=== PATIENT | male | born 1990 | race Caucasian/White ===

== ENCOUNTER 2022-08-29 14:14 | Emergency (ER) | payer SELFPAY ==
[~2022-08-29] VITALS: Ht 180 cm; Wt 72.5 kg
[2022-08-29 14:38] LABS: BASOPHILS # (AUTO) 0.1 10^3/uL (0.0-0.1); BASOPHILS % (AUTO) 1 % (0-10); EOSINOPHILS # (AUTO) 0.1 10^3/uL (0.0-0.3); EOSINOPHILS % (AUTO) 1 % (0-10); HEMATOCRIT 47 % (40-54); HEMOGLOBIN 16.6 g/dL (13.3-17.7); LYMPHOCYTES # (AUTO) 2.3 10^3/uL (1.0-4.0); LYMPHOCYTES % (AUTO) 31 % (12-44); MEAN CORPUSCULAR HEMOGLOBIN 34 pg (25-34); MEAN CORPUSCULAR HGB CONC 35 g/dL (32-36); MEAN CORPUSCULAR VOLUME 96 fL (80-99); MEAN PLATELET VOLUME 10.4 fL (9.0-12.2); MONOCYTES # (AUTO) 0.9 10^3/uL (0.0-1.0); MONOCYTES % (AUTO) 12 % (0-12); NEUTROPHILS # (AUTO) 4.2 10^3/uL (1.8-7.8); NEUTROPHILS % (AUTO) 55 % (42-75); PLATELET COUNT 232 10^3/uL (130-400); WHITE BLOOD COUNT 7.6 10^3/uL (4.3-11.0)
[2022-08-29 14:55] LABS: INR 0.9 (0.8-1.4); PROTHROMBIN TIME PATIENT 12.9 SEC (12.2-14.7)
[2022-08-29 14:56] LABS: ALBUMIN 4.7 GM/DL (3.2-4.5); CHLORIDE 98 MMOL/L (98-107); POTASSIUM 4.3 MMOL/L (3.6-5.0); SODIUM 137 MMOL/L (135-145)
[2022-08-29 14:57] LABS: CALCIUM 9.8 MG/DL (8.5-10.1)
[2022-08-29 14:59] LABS: GLUCOSE 95 MG/DL (70-105); TOTAL PROTEIN 7.5 GM/DL (6.4-8.2)
[2022-08-29 15:00] LABS: BILIRUBIN,TOTAL 0.8 MG/DL (0.1-1.0); CARBON DIOXIDE 28 MMOL/L (21-32)
[2022-08-29] MEDS ORDERED: ANTACID SUSP 30 ML UDC (MYLANTA) PO ONE (15:00)
[2022-08-29] MEDS ORDERED: ONDANSETRON 4 MG/2 ML (SDV) Z0FRAN IVP ONE (15:00)
[2022-08-29] MEDS ORDERED: LIDOCAINE 2% VISCOUS 15 ML UDC PO ONE (15:00)
[2022-08-29] MEDS ORDERED: PANTOPRAZOLE 40 MG (PROTONIX) VIAL IV ONE (15:00)
[2022-08-29 15:02] LABS: ALKALINE PHOSPHATASE 75 U/L (40-136); CREATININE SERUM 0.78 MG/DL (0.60-1.30); GFR ESTIMATED 122
[2022-08-29 15:03] LABS: BUN/CREATININE RATIO 9
[2022-08-29 15:05] LABS: ALANINE AMINOTRANSFERASE 10 U/L (0-55); MAGNESIUM 2.3 MG/DL (1.6-2.4)
[2022-08-29 15:06] LABS: CREATINE KINASE 64 U/L (30-200)
--- NOTE | 2022-08-29 15:11 | Diagnostic Imaging Report ---
INDICATION: Chest pain. No priors. FINDINGS: The lungs are clear. Cardiomediastinal and hilar contours are normal. No failure, effusion, or pneumothorax. No free air beneath the diaphragms. IMPRESSION: Normal frontal chest. Dictated by: Dictated on workstation # [id number]
[2022-08-29 15:12] LABS: CREATINE KINASE MB 0.7 NG/ML (<6.6)
--- NOTE | 2022-08-29 16:45 | ED General ---
General Chief Complaint: Chest Pain Stated Complaint: IRR HEART RATE Nursing Triage Note: PT PRESENTS TO ED VIA POV FROM [facility] FOR INTERMITTENT CP AND [place]. PT REPORTS HE HAS HAD THIS PAIN FOR YEARS BUT RECENTLY STARTED VOMITING WITH THE CP. PT ALSO REPORTS HE DRINKS 5-6 ENERGY DRINKS DAILY. Source of Information: Patient Exam Limitations: No Limitations History of Present Illness Date Seen by Provider: Aug 29, 2022 Time Seen by Provider: 14:22 Initial Comments This 31-year-old gentleman presents to the emergency room with complaints of left-sided chest pain and vomiting. Symptoms started yesterday. He has had intermittent episodes of this for many years. He describes a substernal burning and fullness. He describes it as a sensation of trying to push a fist through a small pipe. He has never been seen for this problem in the past. He admits to being an alcoholic and drinking 10-15 large beers per day. He also smokes and sometimes uses marijuana. He denies any recent hematemesis but states prior episodes of hematemesis. Allergies and Home Medications Allergies Coded Allergies: mushroom (Verified Allergy, Unknown, 08/29/22) Patient Home Medication List Home Medication List Reviewed: Yes Omeprazole (Omeprazole) 20 Mg Tablet.dr, 20 MG PO BID Prescribed by: SHARIF BRANNON on 08/29/22 170 Ondansetron (Ondansetron Odt) 4 Mg Tab.rapdis, 4 MG SL Q4H PRN for NAUSEA/VOMITING Prescribed by: SHARIF BRANNON on 08/29/22 170 Sucralfate (Carafate) 1 Gram Tablet, 1 GM PO QID Prescribed by: SHARIF BRANNON on 08/29/22 1701 Review of Systems Review of Systems Constitutional: no symptoms reported EENTM: no symptoms reported Respiratory: no symptoms reported Cardiovascular: see HPI Gastrointestinal: see HPI Genitourinary: no symptoms reported Musculoskeletal: no symptoms reported Skin: no symptoms reported Psychiatric/Neurological: See HPI Hematologic/Lymphatic: No Symptoms Reported Immunological/Allergic: no symptoms reported Past Vrkmhbi-Wkpyhq-Shuxrs Hx Patient Social History Tobacco Use?: Yes Tobacco type used: Cigarettes Smoking Status: Current Everyday Smoker Substance use?: Yes Substance type: Marijuana Alcohol Use?: Yes Alcohol type: Beer Alcohol Frequency: Daily (12-15 large beers) Pt feels they are or have been: No Past Medical History Surgeries: No Respiratory: No 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 oz. 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 as Tested Skin: Normal Color, Warm/Dry Progress/Results/Core Measures Suspected Sepsis SIRS Temperature: Pulse: 87 Respiratory Rate: 16 Laboratory Tests 08/29/22 14:26: White Blood Count 7.6 Blood Pressure 120 /91 Mean: 101 Laboratory Tests 08/29/22 14:26: Creatinine 0.78, INR Comment 0.9, Platelet Count 232, Total Bilirubin 0.8 Results/Orders Lab Results Laboratory Tests Test 08/29/22 14:26 Range/Units White Blood Count 7.6 4.3-11.0 10^3/uL Red Blood Count 4.90 4.30-5.52 10^6/uL Hemoglobin 16.6 13.3-17.7 g/dL Hematocrit 47 40-54 % Mean Corpuscular Volume 96 80-99 fL Mean Corpuscular Hemoglobin 34 25-34 pg Mean Corpuscular Hemoglobin Concent 35 32-36 g/dL Red Cell Distribution Width 12.1 10.0-14.5 % Platelet Count 232 130-400 10^3/uL Mean Platelet Volume 10.4 9.0-12.2 fL Immature Granulocyte % (Auto) 0 % Neutrophils (%) (Auto) 55 42-75 % Lymphocytes (%) (Auto) 31 12-44 % Monocytes (%) (Auto) 12 0-12 % Eosinophils (%) (Auto) 1 0-10 % Basophils (%) (Auto) 1 0-10 % Neutrophils # (Auto) 4.2 1.8-7.8 10^3/uL Lymphocytes # (Auto) 2.3 1.0-4.0 10^3/uL Monocytes # (Auto) 0.9 0.0-1.0 10^3/uL Eosinophils # (Auto) 0.1 0.0-0.3 10^3/uL Basophils # (Auto) 0.1 0.0-0.1 10^3/uL Immature Granulocyte # (Auto) 0.0 0.0-0.1 10^3/uL Erythrocyte Sedimentation Rate 1 0-15 MM/HR Prothrombin Time 12.9 12.2-14.7 SEC INR Comment 0.9 0.8-1.4 Activated Partial Thromboplast Time 28 24-35 SEC D-Dimer < 0.27 0.00-0.49 UG/ML Sodium Level 137 135-145 MMOL/L Potassium Level 4.3 3.6-5.0 MMOL/L Chloride Level 98 98-107 MMOL/L Carbon Dioxide Level 28 21-32 MMOL/L Anion Gap 11 5-14 MMOL/L Blood Urea Nitrogen 7 7-18 MG/DL Creatinine 0.78 0.60-1.30 MG/DL Estimat Glomerular Filtration Rate 122 BUN/Creatinine Ratio 9 Glucose Level 95 70-105 MG/DL Calcium Level 9.8 8.5-10.1 MG/DL Corrected Calcium 8.5-10.1 MG/DL Magnesium Level 2.3 1.6-2.4 MG/DL Total Bilirubin 0.8 0.1-1.0 MG/DL Aspartate Amino Transf (AST/SGOT) 17 5-34 U/L Alanine Aminotransferase (ALT/SGPT) 10 0-55 U/L Alkaline Phosphatase 75 40-136 U/L Lactate Dehydrogenase 159 125-220 U/L Total Creatine Kinase 64 30-200 U/L Creatine Kinase MB 0.7 <6.6 NG/ML Myoglobin 20.8 10.0-92.0 NG/ML Troponin I < 0.028 <0.028 NG/ML C-Reactive Protein High Sensitivity 0.08 0.00-0.50 MG/DL Total Protein 7.5 6.4-8.2 GM/DL Albumin 4.7 H 3.2-4.5 GM/DL Lipase 138 H 8-78 U/L My Orders Orders - SHARIF JONES MD Lipase (08/29/22 14:57) Ondansetron Injection (Zofran Injectio (08/29/22 15:00) Pantoprazole Injection (Protonix Injecti (08/29/22 15:00) Lidocaine 2% Viscous 15 Ml (Xylocaine Vi (08/29/22 15:00) Antacid Suspension (Mylanta Suspension (08/29/22 15:00) Medications Given in ED Current Medications Medications Dose Ordered Sig/Lawrence Route Start Time Stop Time Status Last Admin Dose Admin Al Hydrox/Mg Hydrox/Simethicone 30 ml ONCE ONCE PO 08/29/22 15:00 08/29/22 15:01 DC 08/29/22 15:59 30 ML Lidocaine HCl 15 ml ONCE ONCE PO 08/29/22 15:00 08/29/22 15:01 DC 08/29/22 15:58 15 ML Ondansetron HCl 8 mg ONCE ONCE IVP 08/29/22 15:00 08/29/22 15:01 DC 08/29/22 15:58 8 MG Pantoprazole 40 mg ONCE ONCE IV 08/29/22 15:00 08/29/22 15:01 DC 08/29/22 15:58 40 MG Vital Signs/I&O 08/29/22 08/29/22 14:24 17:15 Temp 36.3 Pulse 87 80 Resp 16 18 B/P (MAP) 120/91 (101) 99/73 Pulse Ox 98 98 Capillary Refill : Less Than 3 Seconds Blood Pressure Mean: 101 Progress Note : Progress Note Work-up was unremarkable except for minimal elevation in lipase. Symptoms primarily resolved with Zofran and GI cocktail. Patient was treated additionally with Protonix. See discharge instructions for further discussion. ECG Initial ECG Impression Date: Aug 29, 2022 Initial ECG Impression Time: 14:19 Initial ECG Rate: 94 Initial ECG Rhythm: Normal Sinus Comment Sinus rhythm with mild ST elevation diffusely likely representing a juvenile pattern. Not likely pericarditis. No abnormal intervals or axis deviation. Diagnostic Imaging Diagonstic Imaging: Xray Plain Films/CT/US/NM/MRI: chest Comments NAME: TONY [facility]RIEN [facility] REC#: [id number] PT STATUS: REG ER : 1990 PHYSICIAN: TASHA COPELAND INDUSTRIAL ENERGY ENGINEER ADMIT DATE: 08/29/22/ER Signed Date of Exam:08/29/22 CHEST 1 VIEW, AP/PA ONLY INDICATION: Chest pain. No priors. FINDINGS: The lungs are clear. Cardiomediastinal and hilar contours are normal. No failure, effusion, or pneumothorax. No free air beneath the diaphragms. IMPRESSION: Normal frontal chest. Dictated by: Dictated on workstation # [id number] Dict: 08/29/22 1504 Trans: 08/29/22 1653 [id number] Interpreted by: DIANA THOMAS Electronically signed by: DIANA THOMAS 08/29/22 1653 Departure Impression Primary Impression: Atypical chest pain Additional Impressions: Epigastric pain Alcohol dependence Qualified Codes: F10.29 - Alcohol dependence with unspecified alcohol- induced disorder Nausea & vomiting Qualified Codes: R11.2 - Nausea with vomiting, unspecified Pancreatitis Qualified Codes: K85.20 - Alcohol induced acute pancreatitis without necrosis or infection Disposition: 01 HOME, SELF-CARE Condition: Improved (ERASED) Departure-Patient Inst. Decision time for Depature: 16:56 Referrals: [facility] (PCP/Family) Primary Care Physician Patient Instructions: ALCOHOL AND SUBSTANCE ABUSE, Abdominal Pain, Adult ED, Esophagitis, Gastritis ED, OUTPT SUBSTANCE ABUSE RESOURCE Add. Discharge Instructions: Gradually taper down on your alcohol consumption. Do not stop alcohol abruptly as this may cause potentially life-threatening withdrawal symptoms including s eizures and delirium tremens. Take omeprazole and Carafate as prescribed to help protect your stomach. Use Zofran as prescribed for nausea and vomiting. Follow-up with a primary care provider soon as possible for further care and monitoring of your health conditions. Seek treatment for your alcohol dependence as rapidly as possible. See the attached resources. In addition there are some community support groups that may be beneficial such as: [facility] at [facility] in [facility], [facility] in [facility], Return to the emergency room if you have worsening symptoms despite following these instructions. All discharge instructions reviewed with patient and/or family. Voiced understanding. Scripts Ondansetron (Ondansetron Odt) 4 Mg Tab.rapdis 4 MG SL Q4H PRN for NAUSEA/VOMITING, #10 TAB Prov: SHARIF JONES MD 08/29/22 Sucralfate (Carafate) 1 Gram Tablet 1 GM PO QID, #120 TAB Dissolve or crush and mix into 5-10 mL water to make a slurry. Take 30 minutes before meals and before bed. Prov: SHARIF JONES MD 08/29/22 Omeprazole (Omeprazole) 20 Mg Tablet. 20 MG PO BID, #60 TAB Prov: SHARIF JONES MD 08/29/22 Copy Copies To 1: [facility]/SHARIF LEWIS MD Aug 29, 2022 16:45
[2022-08-29] MEDS ORDERED: OMEP20TA56 PO (17:01)
[2022-08-29] MEDS ORDERED: ONDA4TAB11 SL (17:01)
[2022-08-29] MEDS ORDERED: SUCR1TAB36 PO (17:01)
[2022-08-29 17:15] VITALS: BP 99/73
== END 2022-08-29 17:15 | disposition home or self-care (01) ==
LOC: EDUNIT# 14:14 → ER 14:16
DX: K85.90 Acute pancreatitis without necrosis or infection, unspecified (principal); F10.20 Alcohol dependence, uncomplicated; R07.89 Other chest pain; F17.210 Nicotine dependence, cigarettes, uncomplicated; Z28.310 Unvaccinated for COVID-19
CPT/HCPCS: 36415; 71045; 80053; 82550; 82553; 83615; 83690; 83735; 83874; 84484; 85025; 85379; 85610; 85652; 85730; 86141; 93005; 93041

== ENCOUNTER 2023-03-31 17:01 | Emergency (ER) | payer SELFPAY ==
[~2023-03-31] VITALS: Ht 180 cm; Wt 74.0 kg
[~2023-03-31 17:01] MED LIST: OMEP20TA56 PO; ONDA4TAB11 SL; SUCR1TAB36 PO
[2023-03-31 17:04] VITALS: BP 129/94
[2023-03-31] MEDS ORDERED: ASPIRIN 81 MG CHEW (CHILDREN'S ASA) PO ONE (17:15)
[2023-03-31 17:20] LABS: BASOPHILS # (AUTO) 0.1 10^3/uL (0.0-0.1); BASOPHILS % (AUTO) 1 % (0-10); EOSINOPHILS # (AUTO) 0.1 10^3/uL (0.0-0.3); EOSINOPHILS % (AUTO) 2 % (0-10); HEMATOCRIT 44 % (40-54); HEMOGLOBIN 15.5 g/dL (13.3-17.7); LYMPHOCYTES % (AUTO) 39 % (12-44); MEAN CORPUSCULAR HEMOGLOBIN 33 pg (25-34); MEAN CORPUSCULAR HGB CONC 35 g/dL (32-36); MEAN CORPUSCULAR VOLUME 94 fL (80-99); MONOCYTES # (AUTO) 0.9 10^3/uL (0.0-1.0); MONOCYTES % (AUTO) 12 % (0-12); NEUTROPHILS # (AUTO) 3.7 10^3/uL (1.8-7.8); NEUTROPHILS % (AUTO) 47 % (42-75); PLATELET COUNT 234 10^3/uL (130-400); WHITE BLOOD COUNT 7.8 10^3/uL (4.3-11.0)
--- NOTE | 2023-03-31 17:31 | ED Cardiac General ---
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 STATES DRINKING ETOH MAKES IT WORSE AND HAD HAD THREE BEERS TODAY. HX OF HEART MURMUR. SMELLS OF ETOH. (AMARJIT VERGARA) History of Present Illness Date Seen by Provider: Mar 31, 2023 Time Seen by Provider: 17:04 Initial Comments 32 year old male presents with chest pain for the last 2 hours. He was sleeping and pain caused him to wake up, he drank 2 beers and came to ED. He has not taken Aspirin. Reports history of intermittent chest pain "my whole life." He was evaluated in this ED in 2021 for chest pain. He does not have a PCP or see cardiology. He works at [employer]. Reports history of anxiety, depression, and schizophrenia. Does not take any medications or see mental health. He reports chronic history of insomnia. Longstanding history of alcohol abuse. He reports drinking up to 35 beers on most days, he tried to cut back approximately 2 weeks ago and drink 15 beers yesterday. He denies tobacco use but reports marijuana use, last time was approximately 2 weeks ago. VS stable, other than HR 90s-110. Timing/Duration: 1-3 hours Severity: mild Location: substernal (palpable chest pain) Prior CP/Workup: non-cardiac NTG SL WELFARE DIRECTOR: No ASA po WELFARE DIRECTOR: No Associated Systoms: Chest Pain, Cough (a few weeks ago); No Diaphoresis, No Fever/Chills, No Headaches, No Loss of Appetite, No Malaise, No Nausea/Vomiting, No Rash, No Seizure, No Shortness of Air, No Syncope, No Weakness (AMARJIT VERGARA) Allergies and Home Medications Allergies Coded Allergies: mushroom (Verified Allergy, Unknown, 08/29/22) Patient Home Medication List Home Medication List Reviewed: Yes (AMARJIT VERGARA) Discontinued Medications Omeprazole (Omeprazole) 20 Mg Tablet., 20 MG PO BID Discontinued Reason: No Longer Taking Prescribed by: SHARIF BRANNON on 08/29/22 1701 Last Action: Discontinued Ondansetron (Ondansetron Odt) 4 Mg Tab.rapdis, 4 MG SL Q4H PRN for NAUSEA/VOMITING Discontinued Reason: No Longer Taking Prescribed by: SHARIF BRANNON on 08/29/221700 Last Action: Discontinued Sucralfate (Carafate) 1 Gram Tablet, 1 GM PO QID Discontinued Reason: No Longer Taking Prescribed by: SHARIF BRANNON on 08/29/221700 Last Action: Discontinued Review of Systems Review of Systems Constitutional: no symptoms reported, see HPI Cardiovascular: See HPI, Chest Pain Psychiatric/Neurological: See HPI, Anxiety, Depressed, Emotional Problems (AMARJIT VERGARA) All Other Systems Reviewed Negative Unless Noted: Yes (AMARJIT VERGARA) Past Dnmuvle-Kylhpq-Xjyryk Hx Patient Social History Tobacco Use?: Yes Smoking Status: Current Everyday Smoker Substance type: Marijuana Alcohol Use?: Yes Alcohol Frequency: Daily (AMARJIT VERGARA) Past Medical History Surgeries: No Respiratory: No 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 oz. kg; 22.00 BMI Method: General Appearance: WD/WN, Anxious HEENT: TMs Normal, Normal ENT Inspection, Pharynx Normal Neck: Full Range of Motion, Normal Inspection, Non Tender, Supple Respiratory: Lungs Clear, Normal Breath Sounds, Other (left chest wall tender to light or deep palpation) Cardiovascular: Regular Rate, Rhythm, No Edema, No Murmur, Normal Peripheral Pulses, Tachycardia Gastrointestinal: Normal Bowel Sounds, Non Tender, Soft Extremity: Normal Capillary Refill, Normal Inspection, Normal Range of Motion, Non Tender, No Calf Tenderness, No Pedal Edema Neurologic/Psychiatric: Alert, Oriented x3, No Motor/Sensory Deficits, Normal Mood/Affect Skin: Normal Color, Warm/Dry (AMARJIT VERGARA) Progress/Results/Core Measures Results/Orders Lab Results Laboratory Tests Test 03/31/23 17:10 03/31/23 17:27 Range/Units White Blood Count 7.8 4.3-11.0 10^3/uL Red Blood Count 4.67 4.30-5.52 10^6/uL Hemoglobin 15.5 13.3-17.7 g/dL Hematocrit 44 40-54 % Mean Corpuscular Volume 94 80-99 fL Mean Corpuscular Hemoglobin 33 25-34 pg Mean Corpuscular Hemoglobin Concent 35 32-36 g/dL Red Cell Distribution Width 12.6 10.0-14.5 % Platelet Count 234 130-400 10^3/uL Mean Platelet Volume 10.0 9.0-12.2 fL Immature Granulocyte % (Auto) 0 % Neutrophils (%) (Auto) 47 42-75 % Lymphocytes (%) (Auto) 39 12-44 % Monocytes (%) (Auto) 12 0-12 % Eosinophils (%) (Auto) 2 0-10 % Basophils (%) (Auto) 1 0-10 % Neutrophils # (Auto) 3.7 1.8-7.8 10^3/uL Lymphocytes # (Auto) 3.0 1.0-4.0 10^3/uL Monocytes # (Auto) 0.9 0.0-1.0 10^3/uL Eosinophils # (Auto) 0.1 0.0-0.3 10^3/uL Basophils # (Auto) 0.1 0.0-0.1 10^3/uL Immature Granulocyte # (Auto) 0.0 0.0-0.1 10^3/uL Prothrombin Time 12.0 L 12.2-14.7 SEC INR Comment 0.8 0.8-1.4 Activated Partial Thromboplast Time 26 24-35 SEC Sodium Level 141 135-145 MMOL/L Potassium Level 4.1 3.6-5.0 MMOL/L Chloride Level 106 98-107 MMOL/L Carbon Dioxide Level 21 21-32 MMOL/L Anion Gap 14 5-14 MMOL/L Blood Urea Nitrogen 6 L 7-18 MG/DL Creatinine 0.90 0.60-1.30 MG/DL Estimat Glomerular Filtration Rate 116 BUN/Creatinine Ratio 7 Glucose Level 97 70-105 MG/DL Calcium Level 8.8 8.5-10.1 MG/DL Corrected Calcium 8.5 8.5-10.1 MG/DL Magnesium Level 2.2 1.6-2.4 MG/DL Total Bilirubin 0.2 0.1-1.0 MG/DL Aspartate Amino Transf (AST/SGOT) 35 H 5-34 U/L Alanine Aminotransferase (ALT/SGPT) 20 0-55 U/L Alkaline Phosphatase 64 40-136 U/L Myoglobin 21.1 10.0-92.0 NG/ML Troponin I < 0.028 <0.028 NG/ML Total Protein 7.3 6.4-8.2 GM/DL Albumin 4.4 3.2-4.5 GM/DL Serum Alcohol 293 H <10 MG/DL Urine Color YELLOW Urine Clarity CLEAR Urine pH 6.0 5-9 Urine Specific Moore 1.010 L 1.016-1.022 Urine Protein NEGATIVE NEGATIVE Urine Glucose (UA) NEGATIVE NEGATIVE Urine Ketones NEGATIVE NEGATIVE Urine Nitrite NEGATIVE NEGATIVE Urine Bilirubin NEGATIVE NEGATIVE Urine Urobilinogen 0.2 < = 1.0 MG/DL Urine Leukocyte Esterase NEGATIVE NEGATIVE Urine RBC (Auto) NEGATIVE NEGATIVE Urine RBC NONE /HPF Urine WBC NONE /HPF Urine Squamous Epithelial Cells RARE /HPF Urine Crystals NONE /LPF Urine Bacteria NEGATIVE /HPF Urine Casts NONE /LPF Urine Mucus NEGATIVE /LPF Urine Culture Indicated NO Urine Opiates Screen NEGATIVE NEGATIVE Urine Oxycodone Screen NEGATIVE NEGATIVE Urine Methadone Screen NEGATIVE NEGATIVE Urine Propoxyphene Screen NEGATIVE NEGATIVE Urine Barbiturates Screen NEGATIVE NEGATIVE Ur Tricyclic Antidepressants Screen NEGATIVE NEGATIVE Urine Phencyclidine Screen NEGATIVE NEGATIVE Urine Amphetamines Screen NEGATIVE NEGATIVE Urine Methamphetamines Screen NEGATIVE NEGATIVE Urine Benzodiazepines Screen NEGATIVE NEGATIVE Urine Cocaine Screen NEGATIVE NEGATIVE Urine Cannabinoids Screen NEGATIVE NEGATIVE (SHARIF JONES MD) My Orders Orders - SHARIF JONES MD Ekg Tracing (03/31/23 17:04) (SHARIF JONES MD) Vital Signs/I&O 03/31/23 17:04 Temp 36.3 Pulse 117 Resp 16 B/P (MAP) 129/94 (106) Pulse Ox 97 O2 Delivery Room Air (SHARIF JONES MD) Blood Pressure Mean: 106 Progress Progress Note : Time: 17:04 Progress Note Patient assessed, reviewed past medical history. Obtained EKG, chest x-ray, labs and aspirin 324 mg given. EKG results reviewed with the patient and his brother. Stressed that we will need to do further work-up to determine the cause of his pain. 1742 patient ambulated out of room to nurse's station and demanded to leave. He had removed IV and 4x[address] with tape. Offered to review labs and provide discharge. He refused and would not sign AMA papers. Risk and benefits discussed, he walked out door. Labs are not complete, Troponin not known at this time. Blood alcohol 293. 1830 labs completed, troponin normal. (AMARJIT VERGARA) Initial ECG Impression Date: Mar 31, 2023 Initial ECG Impression Time: 17:11 Initial ECG Rate: 116 Initial ECG Rhythm: S.Tach Initial ECG Intervals: ID Initial ECG Intervals ID 152, QRSD 86, QT294, QTc 363. Cincinnatus P73, RR 77, T43. Initial ECG Impression: Normal Initial ECG Comparisson: Unchanged (AMARJIT VERGARA) Departure Impression Primary Impression: Chest wall pain Disposition: HOME, SELF-CARE Condition: Against Medical Advice Departure-Patient Inst. Decision time for Depature: 17:43 (AMARJIT VERGARA) Referrals: [facility] ([place]P/Family) Primary Care Physician ATTENDING PHYSICIAN NOTE: I was physically present as attending physician in the emergency department during the care of this patient, but I was not directly involved in the decision making or delivery of care for this patient. (SHARIF JONES MD) AMARJIT VERGARA Mar 31, 2023 17:31 SHARIF JONES MD April 01, 2023 09:37
[2023-03-31 17:32] LABS: INR 0.8 (0.8-1.4)
[2023-03-31 17:33] LABS: ALBUMIN 4.4 GM/DL (3.2-4.5); POTASSIUM 4.1 MMOL/L (3.6-5.0)
[2023-03-31 17:34] LABS: CALCIUM 8.8 MG/DL (8.5-10.1)
[2023-03-31 17:35] LABS: TOTAL PROTEIN 7.3 GM/DL (6.4-8.2)
[2023-03-31 17:37] LABS: BILIRUBIN,TOTAL 0.2 MG/DL (0.1-1.0)
[2023-03-31 17:37] LABS: BILIRUBIN,URINE NEGATIVE (NEGATIVE); CLARITY,URINE CLEAR; COLOR,URINE YELLOW; GLUCOSE, URINE (UA) NEGATIVE (NEGATIVE); KETONES,URINE NEGATIVE (NEGATIVE); LEUKOCYTE ESTERASE ,URINE NEGATIVE (NEGATIVE); NITRITE,URINE NEGATIVE (NEGATIVE); PROTEIN,URINE NEGATIVE (NEGATIVE)
[2023-03-31 17:39] LABS: CREATININE SERUM 0.9 MG/DL (0.60-1.30)
[2023-03-31 17:42] LABS: MAGNESIUM 2.2 MG/DL (1.6-2.4)
[2023-03-31 17:43] LABS: BACTERIA,URINE NEGATIVE /HPF; SQUAMOUS EPITHELIAL CELL,UR RARE /HPF
[2023-03-31 17:49] LABS: AMPHETAMINE SCREEN, URINE NEGATIVE (NEGATIVE); BARBITURATE SCREEN URINE NEGATIVE (NEGATIVE); BENZODIAZEPINES SCREEN URINE NEGATIVE (NEGATIVE); CANNABINOID SCREEN, URINE NEGATIVE (NEGATIVE); COCAINE SCREEN URINE NEGATIVE (NEGATIVE); METHADONE STAT NEGATIVE (NEGATIVE); OPIATE SCREEN URINE NEGATIVE (NEGATIVE); OXYCODONE STAT NEGATIVE (NEGATIVE); PROPOXYPHENE STAT NEGATIVE (NEGATIVE); TRICYCLIC ANTIDEPRESSANTS SCRE NEGATIVE (NEGATIVE)
--- NOTE | 2023-03-31 17:50 | Diagnostic Imaging Report ---
CHEST 1 VIEW, AP/PA ONLY INDICATION: Chest pain. COMPARISON: Chest radiograph 08/29/2022. FINDINGS: Lungs: Normal lung volume. No focal consolidation. Stable pulmonary vasculature. Pleura: No pleural effusion or pneumothorax. Heart and Mediastinum: Cardiomediastinal silhouette and great vessels of the thorax are stable. Osseous Structures and Soft Tissues: No acute osseous abnormality. Normal soft tissues. IMPRESSION: No acute cardiopulmonary process. Dictated by: Dictated on workstation # [id number]
== END 2023-03-31 17:43 | disposition left against medical advice (07) ==
LOC: EDUNIT# 17:01 → ER 17:03
DX: R07.89 Other chest pain (principal); F17.200 Nicotine dependence, unspecified, uncomplicated; Z28.310 Unvaccinated for COVID-19
CPT/HCPCS: 71045; 80053; 80306; 81000; 83735; 83874; 84484; 85025; 85610; 85730; 93005; 93041; 99284; G0480; 36415; 80320

== ENCOUNTER 2023-07-14 11:00 | Emergency (ER) | payer SELFPAY ==
[~2023-07-14] VITALS: Ht 168 cm; Wt 77.0 kg
[~2023-07-14 11:00] MED LIST changes: +DOXY-227 PO
[2023-07-14] MEDS ORDERED: NS IV 1000 ML 1,000 ML IV STA (11:26)
--- NOTE | 2023-07-14 11:32 | ED Chest Pain ---
General Chief Complaint: Psych/Social Disorder Stated Complaint: SOA/STRESS Nursing Triage Note: WAS ABLE TO GET PT TO COME INTO THE ER. STATES HE HAS ANXIETY AND IT HAS BEEN GOING ON A LIFETIME. COMPLIANS OF SOA AND CHEST PAIN. STATES HE QUIT DRINKING ETOH 1 WEEK AGO BUT STARTED DRINKING TODAY. HAS DRANK A TALL BOY AND A HALF. Source: patient Exam Limitations: intoxication History of Present Illness Date Seen by Provider: Jul 14, 2023 Time Seen by Provider: 11:28 Initial Comments Patient is a 32-year-old male who presents to ED with substernal left-sided chest pain. He states he has a history of chest pain and shortness of breath. This pain increased today with shortness of breath. Patient drove himself to the ED. States he stopped drinking alcohol about a week ago. He reports drinking a tall boy and a half this morning. Patient appears intoxicated. Patient did drive himself here. Patient did check himself in and decided that he wanted to leave. Nursing staff went out to his vehicle to talk to patient about coming in. Since patient was intoxicated PD was contacted and met patient out in the parking lot. Patient agreed to be seen at this time. Patient does appear intoxicated. Complaining of substernal left-sided chest pain. History of a heart murmur. Recently diagnosed with pneumonia June 20. Patient states he is on antibiotic. Currently on meloxicam. Denies of any vomiting. States he has been having the night sweats over the past week started drinking again today. Increase stress and anxiety. Believes this is secondary to anxiety. He has had some mild diarrhea. He reports a chronic cough but every day smoker. Reports chest pain 10 out of 10. Denies headache, dizziness, visual changes, abdominal pain, unilateral muscle weakness or sensory changes. Allergies and Home Medications Allergies Coded Allergies: mushroom (Verified Allergy, Unknown, 08/29/22) Patient Home Medication List Home Medication List Reviewed: Yes Doxycycline Hyclate (Doxycycline Hyclate) 100 Mg Tablet., 100 MG PO BID Prescribed by: Yamila Saunders on 06/20/23 6410 Review of Systems Review of Systems Constitutional: chills; No dizziness, No fever; malaise, weakness EENTM: No Double Vision, No Eye Pain Respiratory: Cough, Shortness of Air Cardiovascular: Chest Pain Gastrointestinal: Denies Abdominal Pain; Diarrhea, Nausea; Denies Vomiting Genitourinary: Denies Burning, Denies Discharge, Denies Drainage, Denies Fr equency Musculoskeletal: No back pain, No joint pain Skin: No change in color, No change in hair/nails Psychiatric/Neurological: Anxiety All Other Systems Reviewed Negative Unless Noted: Yes Past Joyvxri-Zjlhyg-Zxkujz Hx Patient Social History Tobacco Use?: Yes Tobacco type used: Cigarettes Smoking Status: Current Everyday Smoker Alcohol Use?: Yes Alcohol Frequency: Daily Past Medical History Surgery/Hospitalization HX: HEART MURMUR Surgeries: No Respiratory: No Cardiac: Yes ("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 oz. 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, application 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-XII Norm as Tested Skin: Normal Color, Warm/Dry Progress/Results/Core Measures Results/Orders Lab Results Laboratory Tests Test 07/14/23 11:30 07/14/23 12:24 Range/Units White Blood Count 12.0 H 4.3-11.0 10^3/uL Red Blood Count 4.90 4.30-5.52 10^6/uL Hemoglobin 16.1 13.3-17.7 g/dL Hematocrit 47 40-54 % Mean Corpuscular Volume 96 80-99 fL Mean Corpuscular Hemoglobin 33 25-34 pg Mean Corpuscular Hemoglobin Concent 34 32-36 g/dL Red Cell Distribution Width 12.5 10.0-14.5 % Platelet Count 321 130-400 10^3/uL Mean Platelet Volume 9.9 9.0-12.2 fL Immature Granulocyte % (Auto) 0 % Neutrophils (%) (Auto) 62 42-75 % Lymphocytes (%) (Auto) 25 12-44 % Monocytes (%) (Auto) 11 0-12 % Eosinophils (%) (Auto) 1 0-10 % Basophils (%) (Auto) 1 0-10 % Neutrophils # (Auto) 7.5 1.8-7.8 10^3/uL Lymphocytes # (Auto) 3.0 1.0-4.0 10^3/uL Monocytes # (Auto) 1.3 H 0.0-1.0 10^3/uL Eosinophils # (Auto) 0.1 0.0-0.3 10^3/uL Basophils # (Auto) 0.1 0.0-0.1 10^3/uL Immature Granulocyte # (Auto) 0.1 0.0-0.1 10^3/uL Prothrombin Time 12.2 12.2-14.7 SEC INR Comment 0.9 0.8-1.4 Activated Partial Thromboplast Time 26 24-35 SEC Sodium Level 142 135-145 MMOL/L Potassium Level 3.4 L 3.6-5.0 MMOL/L Chloride Level 109 H 98-107 MMOL/L Carbon Dioxide Level 20 L 21-32 MMOL/L Anion Gap 13 5-14 MMOL/L Blood Urea Nitrogen 7 7-18 MG/DL Creatinine 0.79 0.60-1.30 MG/DL Estimat Glomerular Filtration Rate 121 BUN/Creatinine Ratio 9 Glucose Level 56 *L 70-105 MG/DL Calcium Level 9.4 8.5-10.1 MG/DL Corrected Calcium 9.0 8.5-10.1 MG/DL Magnesium Level 2.6 H 1.6-2.4 MG/DL Total Bilirubin 0.4 0.1-1.0 MG/DL Aspartate Amino Transf (AST/SGOT) 31 5-34 U/L Alanine Aminotransferase (ALT/SGPT) 40 0-55 U/L Alkaline Phosphatase 81 40-136 U/L Troponin I < 0.028 <0.028 NG/ML Total Protein 7.8 6.4-8.2 GM/DL Albumin 4.5 3.2-4.5 GM/DL Lipase 92 H 8-78 U/L Serum Alcohol 255 H <10 MG/DL Glucometer 111 H 70-110 MG/DL My Orders Orders - BRIANA GORDON Tiffanie PA Cbc With Automated Diff (07/14/23 11:) Magnesium (07/14/23:) Chest 1 View, Ap/Pa Only (07/14/23) Ekg Tracing (07/14/23) Comprehensive Metabolic Panel (07/14/23) Protime With Inr (07/14/23) Partial Thromboplastin Time (07/14/23) Monitor-Rhythm Ecg Trace Only (07/14/23:) Ed Iv/Invasive Line Start (07/14/23:) Lipase (07/14/23:) Troponin I [place] (07/14/23:) Ns Iv 1000 Ml (Sodium Chloride 0.9%) (07/14/23:) Alcohol (07/14/23:) Vital Signs/I&O 07/14/23 07/14/23 11:20 12:43 Temp 36.3 Pulse 136 104 Resp 16 20 B/P (MAP) 120/83 (95) 115/81 Pulse Ox 97 O2 Delivery Room Air Nasal Cannula Blood Pressure Mean: 95 Comment Sinus tachycardia, 110 bpm, QRS duration 84 MS, QTc 392 MS Departure Communication (PCP) Reviewed previous ER visits, H&P, lab testing. Differential diagnosis, pneumonia, pericarditis, alcohol abuse, pancreatitis, gastritis. Patient is a 32-year-old male who presents to the ED for shortness of breath, chest pain. States he stopped drinking alcohol about a week ago. Started drinking today. Intermittent left-sided and substernal chest pain worse this morning with associate shortness of breath. Patient was seen here June 20. Diagnosed pneumonia. Patient Was discharged with doxycycline which she has finished antibiotics. Patient anxious and stressed. Patient initially checked in and was wanting to leave. Nursing staff went out to redirect patient to the ED as patient appeared intoxicated and concern for his safety. Patient agreed to be seen. Patient does appear intoxicated. Patient was tachycardic. He was not hypoxic. Patient had a CT angio of his chest on June 20 which was negative for PE positive for pneumonia. EKG, generalized lab work, cardiac work-up with added alcohol. Patient Was started on liter fluid as patient did smell of alcohol. Denies any drug use. EKG showed sinus tachycardia without evidence of ST elevation or depression. Hematology shows slight elevated white blood count of 12. Chemistry potassium 3.4. Normal kidney function, liver function. Slight elevated lipase at 92. Magnesium 2.6. Normal troponin. Blood sugar returned at 56. Patient states he has not eaten this morning. Did drink some orange juice and apple juice with slight improvement to 111. He is not on any diabetic medication. Ordered patient a food tray. Patient was requesting to leave. Discussed with patient I recommend continue monitoring blood sugar for a little bit longer to make sure that this does not decrease. Patient refused. Patient acknowledged potential seizures versus . patient does have a sober ride here. Did offer outpatient detox facilities ATC. This does not appear cardiac. Potential anxiety versus stress versus alcohol abuse. Before filling out AMA form patient agreed to stay. Patient finished a liter of fluid. Refused a second liter. he was able to eat a full meal. Blood sugar did increase to 111 drinking orange and apple juice. Refused a second blood sugar check. Patient was requesting to be discharged. Discussed alcohol cessation. Recommend continue staying hydration. Continue monitoring your d iet. Discussed the importance of hydration with electrolytes. Discussed if any pain with eating may consider taking Pepcid, Tums as alcohol can induce gastritis. Patient does appear anxious. Patient was smoking a cigarette outside before arrival. Does not appear in any acute respiratory distress. Family here to take patient home. Impression Primary Impression: Hypoglycemia Additional Impressions: Chest pain Alcohol abuse Disposition: HOME, SELF-CARE Condition: Stable Departure-Patient Inst. Decision time for Depature: 12:22 Referrals: [facility] (PCP/Family) Primary Care Physician Patient Instructions: Low Blood Sugar, Adult ED BRIANA GORDON Jul 14, 2023 11:32
[2023-07-14 11:39] LABS: BASOPHILS # (AUTO) 0.1 10^3/uL (0.0-0.1); BASOPHILS % (AUTO) 1 % (0-10); EOSINOPHILS # (AUTO) 0.1 10^3/uL (0.0-0.3); EOSINOPHILS % (AUTO) 1 % (0-10); HEMATOCRIT 47 % (40-54); HEMOGLOBIN 16.1 g/dL (13.3-17.7); LYMPHOCYTES % (AUTO) 25 % (12-44); MEAN CORPUSCULAR HEMOGLOBIN 33 pg (25-34); MEAN CORPUSCULAR HGB CONC 34 g/dL (32-36); MEAN CORPUSCULAR VOLUME 96 fL (80-99); MEAN PLATELET VOLUME 9.9 fL (9.0-12.2); MONOCYTES # (AUTO) 1.3 10^3/uL (0.0-1.0); MONOCYTES % (AUTO) 11 % (0-12); NEUTROPHILS # (AUTO) 7.5 10^3/uL (1.8-7.8); NEUTROPHILS % (AUTO) 62 % (42-75); PLATELET COUNT 321 10^3/uL (130-400)
[2023-07-14 11:47] LABS: ALBUMIN 4.5 GM/DL (3.2-4.5); CHLORIDE 109 MMOL/L (98-107); POTASSIUM 3.4 MMOL/L (3.6-5.0); SODIUM 142 MMOL/L (135-145)
[2023-07-14 11:48] LABS: CALCIUM 9.4 MG/DL (8.5-10.1)
[2023-07-14 11:49] LABS: INR 0.9 (0.8-1.4); PROTHROMBIN TIME PATIENT 12.2 SEC (12.2-14.7)
[2023-07-14 11:50] LABS: CARBON DIOXIDE 20 MMOL/L (21-32); TOTAL PROTEIN 7.8 GM/DL (6.4-8.2)
[2023-07-14 11:51] LABS: BILIRUBIN,TOTAL 0.4 MG/DL (0.1-1.0)
--- NOTE | 2023-07-14 11:51 | Diagnostic Imaging Report ---
INDICATION: Chest pain TECHNIQUE: Single view chest 11:50 AM CORRELATION STUDY: 06/20/2023 FINDINGS: The heart size, mediastinal configuration and pulmonary vascularity are within normal limits. The lungs are clear with no consolidating infiltrate. There is no significant effusion or pneumothorax. IMPRESSION: 1. Negative appearing single view chest. Dictated by: Dictated on workstation # [id number]
[2023-07-14 11:53] LABS: ALKALINE PHOSPHATASE 81 U/L (40-136); CREATININE SERUM 0.79 MG/DL (0.60-1.30); GFR ESTIMATED 121
[2023-07-14 11:54] LABS: BUN/CREATININE RATIO 9
[2023-07-14 11:56] LABS: ALANINE AMINOTRANSFERASE 40 U/L (0-55); MAGNESIUM 2.6 MG/DL (1.6-2.4)
[2023-07-14 11:57] LABS: LIPASE 92 U/L (8-78)
[2023-07-14 11:58] LABS: GLUCOSE 56 MG/DL (70-105)
[2023-07-14 12:43] VITALS: BP 115/81
== END 2023-07-14 12:42 | disposition left against medical advice (07) ==
LOC: EDUNIT# 11:00 → ER 11:03
DX: R07.2 Precordial pain (principal); E16.2 Hypoglycemia, unspecified; F10.10 Alcohol abuse, uncomplicated; J18.9 Pneumonia, unspecified organism; R00.0 Tachycardia, unspecified; F17.210 Nicotine dependence, cigarettes, uncomplicated; Y90.8 Blood alcohol level of 240 mg/100 ml or more; Z79.1 Long term (current) use of non-steroidal anti-inflammatories (NSAID)
CPT/HCPCS: 71045; 80053; 82947; 83690; 83735; 84484; 85025; 85610; 85730; 93005; 93041; 99284; G0480; 36415; 80320

== ENCOUNTER 2023-10-08 22:26 | Emergency (ER) | payer SELFPAY ==
[~2023-10-08] VITALS: Ht 180.3 cm; Wt 68.0 kg
--- NOTE | 2023-10-08 23:22 | ED General ---
General Stated Complaint: VOMITING BLOOD/BLOOD IN URINE Source of Information: Patient Exam Limitations: No Limitations History of Present Illness Date Seen by Provider: Oct 08, 2023 Time Seen by Provider: 23:22 Initial Comments Patient is a 33-year-old male who presents to the emergency department with a chief complaint of passing blood in his urine for the last week and vomiting blood and passing blood in his stool over the last 2 or 3 days. He has a long history of chronic alcoholism, he started drinking when he was 10 years old. He states on a normal day he will drink 230 packs of beer and a "handle" of J Luis Rivas. He states he has had 5 or 6 "tall boys" today. He has had worsening abdominal pain over the course of the last 2 or 3 days. He has not vomited or had a bowel movement today. He states he promised his fiance that he would come "get checked out". No recent fevers or chills. He has a chronic cough. Heavy smoker. Does not take any daily medications. Is here with a coworker. Has had intermittent periods of 1 month of sobriety. Has never attended AA. No medication allergies. No prior abdominal surgeries. Has been told in the past he has "fatty liver disease". Has never had esophageal varices banded or diagn osed. Timing/Duration: 1 Week Severity: Severe Associated Systoms: Cough, Nausea/Vomiting, Other Allergies and Home Medications Allergies Coded Allergies: mushroom (Verified Allergy, Unknown, 08/29/22) Patient Home Medication List Home Medication List Reviewed: Yes Doxycycline Hyclate (Doxycycline Hyclate) 100 Mg Tablet., 100 MG PO BID Prescribed by: Yamila Saunders on 06/20/23 1628 Review of Systems Review of Systems Constitutional: see HPI Respiratory: cough Cardiovascular: no symptoms reported Gastrointestinal: abdominal pain, hematemesis, nausea, vomiting Genitourinary: hematuria Musculoskeletal: back pain Skin: no symptoms reported Psychiatric/Neurological: Depressed, Emotional Problems All Other Systems Reviewed Negative Unless Noted: Yes Past Kusvzak-Kmipft-Vkkuje Hx Past Medical History Surgery/Hospitalization HX: HEART MURMUR Surgeries: No Respiratory: No 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 oz. kg; 27.00 BMI Method: General Appearance: No Apparent Distress, Thin, Other (Appears intoxicated; smells of cigarettes; dishevelled) Eyes: Bilateral Eye Normal Inspection, Bilateral Eye PERRL, Bilateral Eye EOMI HEENT: PERRL/EOMI; No Scleral Icterus (L), No Scleral Icterus (R); Other ( poor dentition; dry oral mucosa) Neck: Normal Inspection Respiratory: Lungs Clear, No Accessory Muscle Use, No Respiratory Distress Cardiovascular: Regular Rate, Rhythm, Normal Peripheral Pulses Gastrointestinal: Guarding (voluntary guarding throughout; quiet bowel sounds), Tenderness (very difusely tender) Extremity: Normal Inspection, No Pedal Edema Neurologic/Psychiatric: Alert, Oriented x3, No Motor/Sensory Deficits, Depressed Affect, Other (intoxicated) Skin: Normal Color, Warm/Dry Progress/Results/Core Measures Suspected Sepsis SIRS Temperature: Pulse: Respiratory Rate: Laboratory Tests 10/08/23 23:38: White Blood Count 7.5 Blood Pressure / Mean: Laboratory Tests 10/08/23 23:38: Creatinine 0.71, INR Comment 0.9, Platelet Count 199, Total Bilirubin 0.2 Results/Orders Lab Results Laboratory Tests Test 10/08/23 23:38 Range/Units White Blood Count 7.5 4.3-11.0 10^3/uL Red Blood Count 4.65 4.30-5.52 10^6/uL Hemoglobin 15.9 13.3-17.7 g/dL Hematocrit 46 40-54 % Mean Corpuscular Volume 99 80-99 fL Mean Corpuscular Hemoglobin 34 25-34 pg Mean Corpuscular Hemoglobin Concent 35 32-36 g/dL Red Cell Distribution Width 12.6 10.0-14.5 % Platelet Count 199 130-400 10^3/uL Mean Platelet Volume 10.0 9.0-12.2 fL Immature Granulocyte % (Auto) 1 % Neutrophils (%) (Auto) 59 42-75 % Lymphocytes (%) (Auto) 31 12-44 % Monocytes (%) (Auto) 8 0-12 % Eosinophils (%) (Auto) 1 0-10 % Basophils (%) (Auto) 1 0-10 % Neutrophils # (Auto) 4.4 1.8-7.8 10^3/uL Lymphocytes # (Auto) 2.3 1.0-4.0 10^3/uL Monocytes # (Auto) 0.6 0.0-1.0 10^3/uL Eosinophils # (Auto) 0.1 0.0-0.3 10^3/uL Basophils # (Auto) 0.1 0.0-0.1 10^3/uL Immature Granulocyte # (Auto) 0.0 0.0-0.1 10^3/uL Prothrombin Time 12.0 L 12.2-14.7 SEC INR Comment 0.9 0.8-1.4 Activated Partial Thromboplast Time 25 24-35 SEC Sodium Level 140 135-145 MMOL/L Potassium Level 3.8 3.6-5.0 MMOL/L Chloride Level 104 98-107 MMOL/L Carbon Dioxide Level 21 21-32 MMOL/L Anion Gap 15 H 5-14 MMOL/L Blood Urea Nitrogen 5 L 7-18 MG/DL Creatinine 0.71 0.60-1.30 MG/DL Estimat Glomerular Filtration Rate 124 BUN/Creatinine Ratio 7 Glucose Level 92 70-105 MG/DL Calcium Level 8.4 L 8.5-10.1 MG/DL Corrected Calcium 8.2 L 8.5-10.1 MG/DL Total Bilirubin 0.2 0.1-1.0 MG/DL Aspartate Amino Transf (AST/SGOT) 102 H 5-34 U/L Alanine Aminotransferase (ALT/SGPT) 64 H 0-55 U/L Alkaline Phosphatase 66 40-136 U/L Ammonia 21 11-32 UMOL/L Total Protein 7.1 6.4-8.2 GM/DL Albumin 4.2 3.2-4.5 GM/DL Lipase 109 H 8-78 U/L Serum Alcohol 329 *H <10 MG/DL My Orders Orders - ISELA CHUAHAN MD Ed Iv/Invasive Line Start (10/08/23 23:40) Partial Thromboplastin Time (10/08/23 23:40) Protime With Inr (10/08/23 23:40) Cbc And Automated Diff (10/08/23 23:40) Comprehensive Metabolic Panel (10/08/23 23:40) Lipase (10/08/23 23:40) Ammonia (10/08/23 23:40) Alcohol (10/08/23 23:40) Lactated Ringers 1,000 Ml (Lactated Ring (10/08/23 23:45) Pantoprazole Injection (Pantoprazole Inj (10/08/23 23:45) Vital Signs/I&O 10/08/23 10/08/23 23:17 23:55 Temp 36.1 Pulse 89 81 Resp 16 18 B/P (MAP) 141/105 (117) 136/93 Pulse Ox 95 94 O2 Delivery Room Air Room Air Capillary Refill : Progress Note : Time: 00:27 Progress Note Patient seen and evaluated by me. Evaluation today includes history and physic al exam with CBC, Chem-12, lipase, urinalysis, urine drug screen, alcohol level, ammonia level. Pertinent physical exam findings thin disheveled unkempt male in mild distress due to abdominal pain. His vital signs are stable. He is afebrile. He has dry oral mucosa. He has significantly carious and necrotic teeth. Clear lungs, regular heart rate at 93 beats a minute. His abdomen is tender diffusely with voluntary guarding. Hypoactive bowel sounds. No rebound tenderness, nondistended. He is not jaundiced. He is seeming to mentate appropriately however does appear intoxicated. Differential diagnosis includes dehydration, acute liver failure, esophageal varices, transaminitis with coagulopathy secondary to chronic alcoholism, depression, anxiety, acute alcohol intoxication After evaluating the patient I ordered a liter of lactated Ringer's with Zofran and Protonix 80 mg IV. I was notified by nursing staff at 2355 that the patient wanted to leave AGAINST MEDICAL ADVICE. I went in to discuss this with the patient. He was sitting at the side of the bed holding onto his abdomen and stating that he wanted to go home and see his kid. I talked to him about his report of vomiting blood, passing blood in his stool and blood in his urine. There was significant concern that he had some liver complications due to his alcoholism that was affecting his ability to clot. I spoke with him about potentially having esophageal varices that may need direct intervention by a GI specialist. I told him that we should proceed with evaluation and treatment in order to prevent worsening. I educated him that the possibility of was significant. And also that there are worse things than dying and that he could suffer irreversible physical harm if he left. He insisted on leaving AMA, would not let me provide him any medications. Patient was provided an AMA form and ambulated under his own power out of the department. Departure Impression Primary Impression: Abdominal pain Qualified Codes: R10.84 - Generalized abdominal pain Additional Impressions: Alcohol intoxication Qualified Codes: F10.929 - Alcohol use, unspecified with intoxication, u nspecified History of hematemesis Disposition: 07 AGAINST MEDICAL ADVICE Condition: Against Medical Advice Departure-Patient Inst. Referrals: [facility] (PCP/Family) Primary Care Physician ISELA CHAUHAN MD Oct 08, 2023 23:22
[2023-10-08] MEDS ORDERED: LACTATED RINGERS 1,000 ML 1,000 ML IV SCH (23:45)
[2023-10-08] MEDS ORDERED: PANTOPRAZOLE INJECTION 40 MG VIAL IV ONE (23:45)
[2023-10-08 23:47] LABS: BASOPHILS # (AUTO) 0.1 10^3/uL (0.0-0.1); BASOPHILS % (AUTO) 1 % (0-10); EOSINOPHILS # (AUTO) 0.1 10^3/uL (0.0-0.3); EOSINOPHILS % (AUTO) 1 % (0-10); HEMATOCRIT 46 % (40-54); HEMOGLOBIN 15.9 g/dL (13.3-17.7); LYMPHOCYTES # (AUTO) 2.3 10^3/uL (1.0-4.0); LYMPHOCYTES % (AUTO) 31 % (12-44); MEAN CORPUSCULAR HEMOGLOBIN 34 pg (25-34); MEAN CORPUSCULAR HGB CONC 35 g/dL (32-36); MEAN CORPUSCULAR VOLUME 99 fL (80-99); MONOCYTES # (AUTO) 0.6 10^3/uL (0.0-1.0); MONOCYTES % (AUTO) 8 % (0-12); NEUTROPHILS # (AUTO) 4.4 10^3/uL (1.8-7.8); NEUTROPHILS % (AUTO) 59 % (42-75); PLATELET COUNT 199 10^3/uL (130-400); WHITE BLOOD COUNT 7.5 10^3/uL (4.3-11.0)
[2023-10-08 23:53] LABS: ALBUMIN 4.2 GM/DL (3.2-4.5); POTASSIUM 3.8 MMOL/L (3.6-5.0)
[2023-10-08 23:54] LABS: CALCIUM 8.4 MG/DL (8.5-10.1)
[2023-10-08 23:55] VITALS: BP 136/93
[2023-10-08 23:55] LABS: TOTAL PROTEIN 7.1 GM/DL (6.4-8.2)
[2023-10-08 23:56] LABS: INR 0.9 (0.8-1.4)
[2023-10-08 23:57] LABS: BILIRUBIN,TOTAL 0.2 MG/DL (0.1-1.0)
[2023-10-08 23:59] LABS: CREATININE SERUM 0.71 MG/DL (0.60-1.30)
== END 2023-10-08 23:57 | disposition left against medical advice (07) ==
LOC: EDUNIT# 22:26 → ER 22:28
DX: F10.129 Alcohol abuse with intoxication, unspecified (principal); R10.9 Unspecified abdominal pain; Z87.19 Personal history of other diseases of the digestive system
CPT/HCPCS: 80053; 82140; 83690; 85025; 85610; 85730; 99284; G0480; 36415; 80306; 80320; 81000

== ENCOUNTER 2023-10-20 21:11 | Emergency (ER) | payer SELFPAY ==
[~2023-10-20] VITALS: Ht 180 cm; Wt 72.6 kg
[2023-10-20 21:50] LABS: BASOPHILS # (AUTO) 0.1 10^3/uL (0.0-0.1); BASOPHILS % (AUTO) 1 % (0-10); EOSINOPHILS # (AUTO) 0.1 10^3/uL (0.0-0.3); EOSINOPHILS % (AUTO) 1 % (0-10); HEMATOCRIT 48 % (40-54); HEMOGLOBIN 16.6 g/dL (13.3-17.7); LYMPHOCYTES # (AUTO) 2.7 10^3/uL (1.0-4.0); LYMPHOCYTES % (AUTO) 35 % (12-44); MEAN CORPUSCULAR HEMOGLOBIN 34 pg (25-34); MEAN CORPUSCULAR HGB CONC 35 g/dL (32-36); MEAN CORPUSCULAR VOLUME 99 fL (80-99); MEAN PLATELET VOLUME 9.8 fL (9.0-12.2); MONOCYTES # (AUTO) 0.9 10^3/uL (0.0-1.0); MONOCYTES % (AUTO) 11 % (0-12); NEUTROPHILS # (AUTO) 4.1 10^3/uL (1.8-7.8); NEUTROPHILS % (AUTO) 52 % (42-75); PLATELET COUNT 241 10^3/uL (130-400); WHITE BLOOD COUNT 7.9 10^3/uL (4.3-11.0)
[2023-10-20 22:01] LABS: ALBUMIN 4.5 GM/DL (3.2-4.5); CHLORIDE 106 MMOL/L (98-107); POTASSIUM 3.8 MMOL/L (3.6-5.0); SODIUM 141 MMOL/L (135-145)
[2023-10-20 22:02] LABS: CALCIUM 8.7 MG/DL (8.5-10.1)
[2023-10-20 22:03] LABS: GLUCOSE 89 MG/DL (70-105); TOTAL PROTEIN 7.6 GM/DL (6.4-8.2)
[2023-10-20 22:04] LABS: CARBON DIOXIDE 22 MMOL/L (21-32)
[2023-10-20 22:05] LABS: BILIRUBIN,TOTAL 0.2 MG/DL (0.1-1.0)
[2023-10-20 22:07] LABS: ALKALINE PHOSPHATASE 69 U/L (40-136); CREATININE SERUM 0.69 MG/DL (0.60-1.30); GFR ESTIMATED 125
[2023-10-20 22:08] LABS: BUN/CREATININE RATIO 6
[2023-10-20 22:10] LABS: ALANINE AMINOTRANSFERASE 120 U/L (0-55); LIPASE 89 U/L (8-78)
--- NOTE | 2023-10-20 22:23 | ED General ---
General Chief Complaint: General Problems/Pain Stated Complaint: AB PAIN/CHEST PAIN Nursing Triage Note: INTERMITTANT LOWER ABDOMINAL PAIN, CHEST PAIN X3 MONTHS. Source of Information: Patient Exam Limitations: No Limitations History of Present Illness Date Seen by Provider: Oct 20, 2023 Time Seen by Provider: 21:30 Initial Comments Patient seen immediately upon placement into the room. He complains of lower chest, upper abdominal pain, mid back pain and pain in bilateral groin for about 1 year. States symptoms are getting worse. He attributes them to drinking alcohol which he does daily. He tells me he started drinking at the age of 10. All other systems reviewed and negative except documented per HPI. Voice recognition software was used to help create this chart Allergies and Home Medications Allergies Coded Allergies: mushroom (Verified Allergy, Unknown, 08/29/22) Patient Home Medication List Home Medication List Reviewed: Yes No Active Prescriptions or Reported Meds Review of Systems Review of Systems Constitutional: see HPI Past Jafsnlg-Ggqzmy-Osibsc Hx Patient Social History Tobacco Use?: Yes Substance use?: No Alcohol Use?: Yes Alcohol Frequency: Daily Pt feels they are or have been: No Past Medical History Surgery/Hospitalization HX: HEART MURMUR, adhd, alcoholism, GASTRIC ULCERS Surgeries: No Respiratory: No Cardiac: Yes ("Hole in heart" 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 oz. kg; 22.00 BMI Method: General Appearance: No Apparent Distress, WD/WN Eyes: Bilateral Eye Normal Inspection, Bilateral Eye PERRL, Bilateral Eye EOMI HEENT: Normal ENT Inspection, Pharynx Normal Neck: Normal Inspection, Non Tender, Supple Respiratory: Chest Non Tender, Lungs Clear, Normal Breath Sounds, No Accessory Muscle Use, No Respiratory Distress Cardiovascular: Regular Rate, Rhythm, No Murmur, Normal Peripheral Pulses Gastrointestinal: Normal Bowel Sounds, No Organomegaly, Soft, Tenderness (Very mild tenderness palpation the epigastric region without rebound or guarding. No mass organomegaly. No skin changes.) Back: Normal Inspection, No Vertebral Tenderness Extremity: Normal Capillary Refill, Non Tender, No Calf Tenderness Neurologic/Psychiatric: Alert, Oriented x3 Skin: Normal Color, Warm/Dry Progress/Results/Core Measures Suspected Sepsis SIRS Temperature: Pulse: 85 Respiratory Rate: 16 Laboratory Tests 10/20/23 21:40: White Blood Count 7.9 Blood Pressure 130 /103 Mean: 112 Laboratory Tests 10/20/23 21:40: Creatinine 0.69, Platelet Count 241, Total Bilirubin 0.2 Results/Orders Lab Results Laboratory Tests Test 10/20/23 21:40 Range/Units White Blood Count 7.9 4.3-11.0 10^3/uL Red Blood Count 4.87 4.30-5.52 10^6/uL Hemoglobin 16.6 13.3-17.7 g/dL Hematocrit 48 40-54 % Mean Corpuscular Volume 99 80-99 fL Mean Corpuscular Hemoglobin 34 25-34 pg Mean Corpuscular Hemoglobin Concent 35 32-36 g/dL Red Cell Distribution Width 12.7 10.0-14.5 % Platelet Count 241 130-400 10^3/uL Mean Platelet Volume 9.8 9.0-12.2 fL Immature Granulocyte % (Auto) 0 % Neutrophils (%) (Auto) 52 42-75 % Lymphocytes (%) (Auto) 35 12-44 % Monocytes (%) (Auto) 11 0-12 % Eosinophils (%) (Auto) 1 0-10 % Basophils (%) (Auto) 1 0-10 % Neutrophils # (Auto) 4.1 1.8-7.8 10^3/uL Lymphocytes # (Auto) 2.7 1.0-4.0 10^3/uL Monocytes # (Auto) 0.9 0.0-1.0 10^3/uL Eosinophils # (Auto) 0.1 0.0-0.3 10^3/uL Basophils # (Auto) 0.1 0.0-0.1 10^3/uL Immature Granulocyte # (Auto) 0.0 0.0-0.1 10^3/uL Sodium Level 141 135-145 MMOL/L Potassium Level 3.8 3.6-5.0 MMOL/L Chloride Level 106 98-107 MMOL/L Carbon Dioxide Level 22 21-32 MMOL/L Anion Gap 13 5-14 MMOL/L Blood Urea Nitrogen 4 L 7-18 MG/DL Creatinine 0.69 0.60-1.30 MG/DL Estimat Glomerular Filtration Rate 125 BUN/Creatinine Ratio 6 Glucose Level 89 70-105 MG/DL Calcium Level 8.7 8.5-10.1 MG/DL Corrected Calcium 8.3 L 8.5-10.1 MG/DL Total Bilirubin 0.2 0.1-1.0 MG/DL Aspartate Amino Transf (AST/SGOT) 173 H 5-34 U/L Alanine Aminotransferase (ALT/SGPT) 120 H 0-55 U/L Alkaline Phosphatase 69 40-136 U/L Troponin I < 0.028 <0.028 NG/ML Total Protein 7.6 6.4-8.2 GM/DL Albumin 4.5 3.2-4.5 GM/DL Lipase 89 H 8-78 U/L My Orders Orders - JANEL DIETZ DO Comprehensive Metabolic Panel (10/20/23 21:39) Lipase (10/20/23 21:39) Troponin I [place] (10/20/23 21:39) Ekg Tracing (10/20/23 21:39) Cbc And Automated Diff (10/20/23 21:39) Vital Signs/I&O 10/20/23 10/20/23 21:20 22:28 Temp 36.0 36.4 Pulse 85 80 Resp 16 16 B/P (MAP) 130/103 (112) 135/91 Pulse Ox 96 97 O2 Delivery Room Air Room Air Capillary Refill : Less Than 3 Seconds Blood Pressure Mean: 112 ECG Comment Sinus rhythm with a rate of 71 bpm. Normal intervals. Normal axis. No ST or T wave abnormalities. No ectopy. No STEMI. Critical Care Note Critical Care Total Time (minutes) 60 Departure Communication (Admissions) Patient is hemodynamically stable, neurovascular and sensory intact. He d escribes diffuse pains for upwards of 1 year. He is abduction acute changes in these and he attributes them to alcohol use. He states he wants to quit drinking alcohol but has tried several times extended yet to be able to maintain remission. No fevers chills nausea or vomiting. No changes in his bowels. Lipase is slightly elevated 89, he has very minimal tenderness on exam with no rebound or guarding certainly nonsurgical abdominal exam. His FTs are slightly elevated consistent with chronic alcoholism. Remainder of his labs are unremarkable, reassuring. He did complain of some chest pain so I did an EKG which was negative. Troponin is negative as well. Impression Primary Impression: Alcohol dependence Qualified Codes: F10.29 - Alcohol dependence with unspecified alcohol- induced disorder Disposition: HOME, SELF-CARE Condition: Stable Departure-Patient Inst. Referrals: [facility] [place] Primary Care Physician Patient Instructions: CHRONIC PAIN Add. Discharge Instructions: As discussed no emergent medical conditions identified. You may have mild pancreatitis. I recommend you maintain a clear liquid diet until your abdominal pain subsides. Use ibuprofen and Tylenol for pain. Return to the emergency department for any severe concerns. Follow-up with your primary doctor for any nonemergent needs. All discharge instructions reviewed with patient and/or family. Voiced understanding. Scripts No Active Prescriptions or Reported Meds JANEL DIETZ DO Oct 20, 2023 22:23
[2023-10-20 22:28] VITALS: BP 135/91
== END 2023-10-20 22:30 | disposition home or self-care (01) ==
LOC: EDUNIT# 21:11 → ER 21:13
DX: F10.20 Alcohol dependence, uncomplicated (principal); R10.13 Epigastric pain; R07.89 Other chest pain
CPT/HCPCS: 36415; 80053; 83690; 84484; 85025; 93005